=== PATIENT | male | born 1950 | race Caucasian/White ===

== ENCOUNTER 2020-11-25 15:46 | Inpatient (IN) ==
[2020-11-25] MEDS ORDERED: NITROGLYCERIN SL 0.4 MG TABLET SL STA (18:36)
[2020-11-25 18:47] LABS: Basophils # 0.1 10*3/uL (0.0-0.2); Basophils % 0.9 % (0.0-0.8); Eosinophils # 0.3 10*3/uL (0.0-0.87); Eosinophils % 3.3 % (0.00-10.9); Hematocrit 48.1 VOL% (42.0-52.0); Hemoglobin 15.8 GM/DL (14.0-18.0); Immature Granulocytes % 0.1 %; Immature Granulocytes Absolute 0.01 #; Lymphocytes # 5.5 10*3/uL (1.4-4.0); Lymphocytes % 53.3 % (21.2-54.2); Mean Corpuscular HGB Conc 32.8 GM/DL (32-36); Mean Corpuscular Volume 93.2 FL (87-102); Mean Platelet Volume 9.6 FL (9.6-12.0); Monocytes % 7.5 % (1.7-12.7); Neutrophils % 34.9 % (38.7-73.9); Platelet Count 291 T/CUMM (130-400); Red Blood Count 5.16 MC/CUMM (3.8-5.5); Red Cell Distribution Width 13.2 % (9.3-17.3); White Blood Count 10.4 T/CUMM (4-12)
[2020-11-25 18:55] LABS: PT Patient Result 10.8 SECS (9.8-11.9); Partial Thromboplastin Time 28.8 SECS (23.9-33.8)
[2020-11-25 19:06] LABS: Albumin 4.2 G/DL (3.4-5.0); Bilirubin,Total 0.5 MG/DL (0.2-1.0); Calcium 9.1 MG/DL (8.5-10.1); Osmolality,Calculated 272.8 MOS/KG (273-304); Total Protein 8.3 G/DL (6.4-8.3)
[2020-11-25] MEDS ORDERED: ONDANSETRON 4 MG/2 ML VIAL IV PRN (20:06)
[2020-11-25] MEDS ORDERED: hydrALAZINE 20 MG/1 ML VIAL IV PRN (20:06)
[2020-11-25] MEDS ORDERED: DEXTROSE 50% 25 GM/50 ML VIAL IV PRN (20:06)
[2020-11-25] MEDS ORDERED: GLUCAGON 1 MG VIAL IM PRN (20:06)
[2020-11-25] MEDS ORDERED: ACETAMINOPHEN 325 MG TABLET PO PRN (20:06)
[2020-11-25] MEDS ORDERED: KETOROLAC 30 MG/1 ML VIAL IV PRN (20:12)
[2020-11-25] MEDS ORDERED: ENOXAPARIN 40 MG/0.4 ML SYRINGE SUBCUT SCH (20:30)
[2020-11-25 20:32] LABS: Atypical Lymphocytes 3+
[2020-11-25] MEDS ORDERED: NITROGLYCERIN 2% OINT 1 INCH/GM PACK TOP SCH (21:00)
[2020-11-25] MEDS ORDERED: amLODIPine 5 MG TABLET PO SCH (21:00)
[2020-11-25] MEDS ORDERED: lisinopriL 10 MG TABLET PO SCH (21:00)
[2020-11-25] MEDS ORDERED: METOPROLOL TARTRATE 25 MG TABLET PO SCH (21:00)
[2020-11-25] MEDS ORDERED: PANTOPRAZOLE 40 MG VIAL IV STA (21:20)
[2020-11-25] MEDS ORDERED: THIAMINE IV SCH (22:00)
[2020-11-25] MEDS ORDERED: DEXTROSE 5% IV SCH (22:00)
[2020-11-25] MEDS ORDERED: NACL 0.45% IV SCH (22:00)
[2020-11-25] MEDS ORDERED: FOLIC ACID IV SCH (22:00)
[2020-11-26 04:10] LABS: Basophils # 0.1 10*3/uL (0.0-0.2); Eosinophils # 0.3 10*3/uL (0.0-0.87); Eosinophils % 2.9 % (0.00-10.9); Hemoglobin 14.3 GM/DL (14.0-18.0); Immature Granulocytes % 0.1 %; Immature Granulocytes Absolute 0.01 #; Lymphocytes # 4.3 10*3/uL (1.4-4.0); Lymphocytes % 49.7 % (21.2-54.2); Mean Corpuscular HGB Conc 31.8 GM/DL (32-36); Mean Corpuscular Volume 93.2 FL (87-102); Monocytes % 7.6 % (1.7-12.7); Neutrophils % 38.7 % (38.7-73.9); Platelet Count 278 T/CUMM (130-400); Red Blood Count 4.83 MC/CUMM (3.8-5.5); Red Cell Distribution Width 13.3 % (9.3-17.3); White Blood Count 8.7 T/CUMM (4-12)
[2020-11-26 04:27] LABS: Albumin 3.8 G/DL (3.4-5.0); Bilirubin,Total 0.8 MG/DL (0.2-1.0); Calcium 8.5 MG/DL (8.5-10.1); Osmolality,Calculated 280.4 MOS/KG (273-304); Risk Ratio 6.25; Total Protein 7.9 G/DL (6.4-8.3); VLDL CHOLESTEROL 54.6 MG/DL
[2020-11-26] MEDS ORDERED: ASPIRIN CHEW 81 MG TABLET PO SCH (09:00)
[2020-11-26] MEDS ORDERED: PANTOPRAZOLE 40 MG TABLET PO SCH (09:00)
[2020-11-26] MEDS ORDERED: SODIUM CHLORIDE 0.9% 500 ML IV ONE (10:10)
[2020-11-26 14:05] LABS: Barbiturates Screen,Urine Negative (Negative); Benzodiazepines Screen,Urine Negative (Negative); Cannabinoid Screen,Urine Negative (Negative); Opiate Screen,Urine Negative (Negative); Phencyclidine Screen,Urine Negative (Negative)
[2020-11-26 16:43] VITALS: BP 124/85
[2020-11-26] MEDS ORDERED: ROSUVASTATIN 10 MG TABLET PO SCH (21:00)
== END 2020-11-26 16:00 | disposition home or self-care (01) | DRG 392 ==
LOC: N.ED 15:46 → N.EDINP 20:05
PROVIDERS: ADMIT Internal Medicine; ATTEND Internal Medicine